=== PATIENT | female | born 1995 | race Caucasian/White ===

== ENCOUNTER 2017-11-10 21:42 | Emergency (ER) | payer OTHER ==
[2017-11-10] MEDS ORDERED: Acetaminophen 500 MG TAB ONE (22:50)
[2017-11-10] MEDS ORDERED: Ibuprofen 200 MG TAB ONE (22:50)
--- NOTE | 2017-11-10 23:04 | RAD ---
PORTABLE AP CHEST X-RAY: 11/10/2017 HISTORY: Chest pain. FINDINGS: The cardiac silhouette and pulmonary vasculature are within normal limits. The lungs are clear. The osseous structures are intact. IMPRESSION: No acute cardiopulmonary process. POS: [facility]
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
[2017-11-10] MEDS ORDERED: Acetaminophen 325 MG TAB ONE (23:24)
[2017-11-10 23:31] LABS: Bilirubin Negative (Negative); Blood, Urine Negative (Negative); Clarity CLEAR (Clear); Glucose, Urine (Dipstick) Negative (Negative); Leukocyte Negative (Negative); Nitrite Negative (Negative); Protein, Urine (Dipstick) Negative (Neg-Trace); Specific Gravity, Urine 1.025 (1.002-1.036); Urobilinogen 0.2 mg/dL (0.2-1.0)
[2017-11-10 23:35] LABS: Pregnancy Test - Urine (BHCG) Negative (Negative); Pregu Control Background? CLEAR/WHITE (CLR/WHITE); Pregu Control Bar Appear? YES (CONTROL BAR); Specific Gravity 1.025 (1.002-1.036)
== END 2017-11-11 00:35 | disposition home or self-care (01) ==
LOC: ERS 21:42
DX: S70.02XA Contusion of left hip, initial encounter (principal); V89.2XXA Person injured in unspecified motor-vehicle accident, traffic, initial encounter
CPT/HCPCS: 71045; 72170; 81003; 81025